=== PATIENT | female | born 1950 | race Caucasian/White ===

== ENCOUNTER 2017-05-19 11:20 | Observation (INO) ==
--- NOTE | 2017-05-19 11:40 | Emergency Department Note ---
Disposition Clinical Impression: Hx of aortic valve replacement, Hx of CABG Chest pain Qualifiers: Chest pain type: unspecified Qualified Code(s): R07.9 - Chest pain, unspecified Disposition: Admitted As Inpatient Condition: Fair Referrals: Rossy Adams CNP [Primary Care Provider] - Forms: ED Satisfaction Letter Time of Disposition: 12:27 Chest Pain HPI - General Chief Complaint: ED Chest Pain Stated Complaint: chest burning Time Seen by Provider: 05/19/17 11:20 Source: patient Limitations: no limitations Vital Signs Reviewed: No Nursing Notes Reviewed: Yes - History of Present Illness HPI Narrative: 66-year-old female with history of aortic valve replacement, CABG 2, pacemaker , presents with intermittent chest burning 4 out of 10, radiating to her neck the last 2 days this has been getting progressively worst she called Dr. Ramirez, and she recommended she co The patient states that she is typically admitted to [facility] for previous workup. The patient denies fever chills, shortness of breath, abdominal pain, dysuria, hematuria. Pt complaint: chest pain, other ("Chest Burning") Onset (ago): day(s) Duration: intermittent Severity scale (1-10): 0 Pain Radiation: neck Improves with: nothing Worsens with: nothing Associated symptoms: Reports: nausea Treatments prior to arrival chest pain: none - Related Data Home Medications Medication Instructions Recorded Confirmed Coumadin 01/24/16 Allergies Allergy/AdvReac Type Severity Reaction Status Date / Time codeine Allergy Anaphylaxis Verified 01/24/16 16:58 propoxyphene [From Darvon] Allergy Anaphylaxis Verified 01/24/16 16:58 Review of Systems: 10 Point ROS was performed and negative except as per below or as documented in HPI. Constitutional: Denies: fever Eyes: Denies: eye pain ENT: Denies: nasal congestion CV:Reports chest pain. Resp: Denies: cough, hemoptysis GI: Denies: abdominal pain, hematochezia Denies: dysuria, hematuria MSK: Denies: back pain, neck pain, extremity pain Skin: Denies: new rashes Neuro: Denies: sensory or motor changes All systems ED: reviewed and negative except as stated. Review of Systems: As Per HPI Chest Pain PMH - Past Medical History Medical history: Reports: CVA Psychiatric history: Reports: no psych history - Social History Smoking Status: Never smoker Alcohol use: Reports: none Drug use: Reports: none Physical Exam Constitutional: NAD, vital signs mild tachycardic comfortable Eyes: PERRLA, sclera anicteric ENT & Mouth: NCAT, normal external ears bilaterally, MMM Neck: normal inspection, neck is supple Resp: CTA bilaterally, no resp distress CV: tachycardic, +2 systolic murmur Surgical incision consistent with CABG, left pacemaker GI: normal inspection, soft, no guarding or rigidity Back: normal inspection, no tenderness to palpation Neuro: A&O3, CNII-XII grossly intact, WYNNE MSK: no gross deformities, normal ROM UE and LE Skin: on limited exam, skin intact with no rashes or lesions - General Limitations: no limitations General appearance: in no apparent distress Course Course Narrative: 66-year-old femalepresents with chest pain at rest, HEART SCORE of 6 risk factors, age,moderately suspicious story, will get ischemic workup ekg no changes, LBBB with paced rhthym - Reevaluation(s) Reevaluation #1: Trop negative EKG no changes Reevaluation #2: Trop negative admitted to Dr Land for wkrup Heart score 6 patient stable and chest pain free. ASA given Time: 12:26 Vital Signs Temperature 98 F 05/19/17 11:22 Pulse Rate 98 05/19/17 11:22 Respiratory Rate 20 05/19/17 11:22 Blood Pressure 152/92 05/19/17 11:22 O2 Sat by Pulse Oximetry 96 05/19/17 11:22 Temperature 98 F 05/19/17 11:22 Pulse Rate 92 05/19/17 11:41 Respiratory Rate 18 05/19/17 11:41 Blood Pressure 152/106 05/19/17 11:41 O2 Sat by Pulse Oximetry 95 05/19/17 11:41 Oxygen Delivery Oxygen Delivery Room Air Chest Pain - Lab Data Result diagrams: 05/19/17 11:35 Lab Results 05/19/17 05/19/17 05/19/17 Range/Units 11:35 11:35 11:35 WBC 6.2 (4.3-11.1) K/mcL RBC 3.68 L (3.82-4.97) M/mcL Hgb 11.9 (11.5-15.4) g/dL Hct 36.4 (35.3-44.9) % MCV 98.9 (83.0-100.0) fL MCH 32.3 (28.0-33.3) pg MCHC 32.7 (31.6-35.5) g/dL RDW 13.1 (11.5-14.5) % Plt Count 185 (140-400) K/mcL MPV 12.5 H (9.4-12.4) fL Immature Gran % 0.5 (0-4) % Seg Neutrophils % 69.5 % Lymphocytes % 18.8 % Monocytes % 8.6 % Eosinophils % 1.8 % Basophils % 0.8 % Neutrophils # 4.3 (1.6-8.9) K/mcL Lymphocytes # 1.2 (0.6-4.6) K/mcL Monocytes # 0.5 (0.0-1.3) K/mcL Eosinophils # 0.1 (0.0-0.6) K/mcL Basophils # 0.1 (0.0-0.2) K/mcL PT 28.6 H (9.4-12.1) Seconds INR 2.6 Troponin I 0.00 (0-0.03) ng/mL - EKG Data EKG attestation: Yes I reviewed and interpreted this EKG. EKG shows normal: sinus rhythm Rate: tachycardia Emerson/QRS: LBBB (Pacmaker) Interpretation: nonspecific ST-T wave changes - Core Measures AMI Core Measures Followed: Yes Heart Score - Score History: Moderately Suspicious EKG: Non Specific repolarisation Disturbance Age: Greater than 65 Risk Factors: Equal/Greater than 3 risk factor or history of atherosclerotic disease Troponin: Less than normal limit HEART Score Total: 6
[2017-05-19] MEDS ORDERED: Aspirin 81 MG TAB.CHEW PO ONE (11:41)
--- NOTE | 2017-05-19 11:41 | Emergency Department Note ---
START Narrative - START START: I examined this patient and my medical decision-making was reviewed with the MANUFACTURING PLANT TECHNICIAN/PA/Advanced Practice Nurse/Resident Physician. I agree with the documented findings, disposition and treatment plan as described except to the extent set forth below. ED attending note: Patient seen with emergency medicine resident Dr. Clifton. Please see a copy of his note for details of the H&P, evaluation, management and disposition of this patient. We independently had [id number] contact with the patient Briefly: 66-year-old female history of multiple pacemakers with replacement aortic valve replacement 2. Coronary artery disease. Chest burning with radiation to neck intermittently since yesterday. EKG shows paced rhythm with no acute ischemic changes compared to an old EKG. Heart scored at least 4. Patient will undergo cardiac evaluation and admission for provocative testing. Patient disposition pending
[2017-05-19 11:47] LABS: Basophils # 0.1 K/mcL (0.0-0.2); Basophils % 0.8 %; Eosinophils # 0.1 K/mcL (0.0-0.6); Eosinophils % 1.8 %; Hematocrit 36.4 % (35.3-44.9); Hemoglobin 11.9 g/dL (11.5-15.4); Immature Granulocytes % 0.5 % (0-4); Lymphocytes # 1.2 K/mcL (0.6-4.6); Lymphocytes % 18.8 %; Mean Corpuscular HGB Conc 32.7 g/dL (31.6-35.5); Mean Corpuscular Hemoglobin 32.3 pg (28.0-33.3); Mean Corpuscular Volume 98.9 fL (83.0-100.0); Mean Platelet Volume 12.5 fL (9.4-12.4); Monocytes # 0.5 K/mcL (0.0-1.3); Monocytes % 8.6 %; Neutrophils # 4.3 K/mcL (1.6-8.9); Platelet Count 185 K/mcL (140-400); Red Blood Count 3.68 M/mcL (3.82-4.97); Red Cell Distribution Width 13.1 % (11.5-14.5); Segmented Neutrophils % 69.5 %
[2017-05-19 12:06] LABS: INR 2.6; Prothrombin Time 28.6 Seconds (9.4-12.1)
[2017-05-19 12:56] LABS: BUN/Creatinine Ratio 17 (6-26); Blood Urea Nitrogen 18 mg/dL (7-20); Calcium 9.7 mg/dL (8.6-10.8); Carbon Dioxide 27 mEq/L (19-29); Chloride 104 mEq/L (98-109); Glucose 84 mg/dL (70-99); Osmolality,Calculated 287 (280-300); Potassium 3.8 mEq/L (3.5-4.5); Sodium 138 mEq/L (136-145); eGFR For African Americans > 60 (> 60); eGFR For Non-African Americans 50 (> 60)
[2017-05-19] MEDS ORDERED: Naloxone 0.4 MG/ML INJ IVP PRN (12:58)
[2017-05-19] MEDS ORDERED: Acetaminophen 325 MG TABLET PO PRN (12:58)
--- NOTE | 2017-05-19 13:25 | Internal Med History&Physical ---
Date of Encounter: 05/19/17 Time of Encounter: 12:30 Assessment and Plan (1) Chest discomfort Current visit: Yes Status: Acute Etiology undetermined. Pt has Hx of CABG, need to r/o ACS. Also possible arrhythmia or valve problem. - We will place patient on continuous cardiac monitoring. - We will check 3 sets of troponin. - Echocardiogram ordered. - Nuclear stress test in a.m. (2) DVT prophylaxis Current visit: Yes Status: Acute Patient is on Coumadin (3) History of CVA (cerebrovascular accident) Current visit: Yes Status: Acute Patient has history of a CVA, on antiplatelet and statin treatment (4) Status post placement of cardiac pacemaker Current visit: Yes Status: Acute (5) Hx of aortic valve replacement Current visit: Yes Status: Acute On Coumadin. INR target 2.5-3.5 (6) Hx of CABG Current visit: Yes Status: Acute Continue aspirin, beta mert, and statin. Internal Medicine - H&P: HPI Chief complaint: Chest discomfort Admitted From: Home Plans for Post Hospital Care: Home History of present illness: Ms. Clark is a 66 year old female present to ER for chest discomfort for 2 days. Patient has history of aortic valve replacement on Coumadin, history of CABG, s/p PPM, hx of CVA with left side residual paralysis present to ER and complaining of chest discomfort, feels like burning, radiated to left neck, last about 5 second, having 3 times yesterday. At the beginning, patient thought it is due to her pacemaker, which she just get replaced on Mar 15 2017 by [employer]. Patient contacted [facility] and had her PPM checked remotely and was told pacemaker works well. Since symptoms persist, patient came to ER for further treatment. Patient denies shortness of breath, nausea, diaphoresis. She complains of blurred vision when the chest discomfort happens. I discussed the CODE STATUS with patient. She said she does not want resuscitation, DNR CCA has been placed. Past Med Surg Social Fam HX - Past Medical History Medical history: CVA Psychiatric history: no psych history - Social History Smoking Status: Never smoker Smokeless Tobacco Status: No Alcohol use: none Drug use: none Internal Medicine - H&P: Meds Alendronate Sodium [Fosamax] 70 mg PO SA 05/19/17 [History] Aspirin [Ecotrin] 325 mg PO DAILY 05/19/17 [History] Atorvastatin Calcium 80 mg PO DAILY 05/19/17 [History] Calcium Carbonate/Vitamin D3 [Calcium 600 + Vit D Tablet] 1 each PO DAILY [History] CarBAMazepine [Carbamazepine ER] 200 mg PO DAILY 05/19/17 [History] Cholecalciferol (D-3) [Vitamin D] 2,000 unit PO DAILY 05/19/17 [History] Enoxaparin [Lovenox] 60 mg SQ DAILY 05/19/17 [History] Ferrous Sulfate [Iron] 325 mg PO DAILY 05/19/17 [History] Metoprolol [Lopressor] 50 mg PO BID 05/19/17 [History] Mv-Mn/FA/Vit K/Lycop/Lut/Coq10 [Daily Multivitamin Capsule] 1 each PO DAILY [History] Warfarin [Coumadin] 5 mg PO SUTUWETHSA 05/19/17 [History] Warfarin [Coumadin] 7.5 mg PO MOFR 05/19/17 [History] Allergies codeine Allergy (Verified 05/19/17 12:33) Anaphylaxis propoxyphene [From Darvon] Allergy (Verified 05/19/17 12:33) Anaphylaxis All Systems PM: A 10-system review of systems was performed and is negative for pertinent findings except as documented above in the HPI. - Constitutional Vitals: Temp Pulse Resp BP Pulse Ox 98 F 80 18 150/82 95 05/19/17 11:22 05/19/17 12:36 05/19/17 12:41 05/19/17 12:41 05/19/17 12:36 General appearance: Present: A&O X 3, no acute distress, answers questions appropriately - Head Head exam: Present: atraumatic, normocephalic - Eye Eye exam: Present: PERRL, conjuntiva pink, sclera anicteric Pupils: Present: PERRL - Neck Neck exam general surgery: Present: supple, trachea midline. Absent: lymphadenopathy - Respiratory Respiratory exam: Present: CTAB. Absent: accessory muscle use, rales, rhonchi, wheezes - Cardiovascular Cardiovascular exam: Present: RRR, +S1, +S2. Absent: diastolic murmur, gallop, rubs, systolic murmur - GI/Abdominal GI/Abdominal exam: Present: normal bowel sounds, soft, no peritoneal signs. Absent: distended, tenderness - Extremities Exam Extremities exam: Present: warm, radial pulses palpable and symetrical. Absent : calf tenderness, cyanotic, pedal edema - Neurological Exam Neurological exam: Present: CN II-XII intact, motor sensory deficit (Left side) , oriented X3, no focal deficits, facial droop (Left side). Absent: pronater drift, speech deficit - Skin Skin exam: Present: dry, intact Internal Med - H&P Results - Labs CBC & Chem 7: 05/19/17 11:35 05/19/17 11:35 - EKG Data -: EKG Interpreted by Myself (RBBB) EKG shows normal: sinus rhythm
--- NOTE | 2017-05-19 16:01 | Electrocardiograph Report ---
[address] [place], [place] [address] Test Date: 2017-05-19 Pat Name: Marysol Clark Department: 103 Room: 3B13 Gender: F Office Support Assistant: : 1950 Requested By: Karlos Clifton Order Number: [id number] Reading MD: Adalgisa Murphy Measurements Intervals [place] Rate: 103 P: 1 WV: 148 QRS: -10 QRSD: 128 T: -10 QT: 336 QTc: 396 Interpretive Statements SINUS TACHYCARDIA RIGHT BUNDLE BRANCH BLOCK VOLTAGE CRITERIA FOR LVH INFERIOR MYOCARDIAL INFARCTION, OF INDETERMINATE AGE NONSPECIFIC ST ABNORMALITIES Electronically Signed On 05-19-2017 15:59:25 EDT by Adalgisa Murphy
[2017-05-19] MEDS ORDERED: *HR* Warfarin 7.5 MG TABLET PO SCH (18:00)
[2017-05-19] MEDS ORDERED: Warfarin perPT PO PRN (18:00)
[2017-05-20 05:38] LABS: Basophils % 0.6 %; Eosinophils # 0.2 K/mcL (0.0-0.6); Eosinophils % 2.4 %; Hematocrit 35.1 % (35.3-44.9); Hemoglobin 11.3 g/dL (11.5-15.4); Immature Granulocytes % 0.3 % (0-4); Lymphocytes # 1.1 K/mcL (0.6-4.6); Lymphocytes % 15.8 %; Mean Corpuscular HGB Conc 32.2 g/dL (31.6-35.5); Mean Corpuscular Hemoglobin 31.7 pg (28.0-33.3); Mean Corpuscular Volume 98.6 fL (83.0-100.0); Mean Platelet Volume 13.3 fL (9.4-12.4); Monocytes # 0.7 K/mcL (0.0-1.3); Monocytes % 10.7 %; Neutrophils # 4.7 K/mcL (1.6-8.9); Platelet Count 158 K/mcL (140-400); Red Blood Count 3.56 M/mcL (3.82-4.97); Segmented Neutrophils % 70.2 %
[2017-05-20 06:01] LABS: Calcium 9.3 mg/dL (8.6-10.8); Magnesium 1.7 mg/dL (1.6-2.6); Potassium 3.8 mEq/L (3.5-4.5)
[2017-05-20] MEDS: Aspirin Enteric Coated 325 MG Tablet PO SCH (07:59)
[2017-05-20] MEDS: Cholecalciferol (D-3) 1,000 UNIT TABLET PO SCH (07:59)
[2017-05-20] MEDS: Multivit/Ca/Min/Fe/FA 1 TAB TABLET PO SCH (07:59)
[2017-05-20] MEDS: (Calcium Carbonate/Vitamin D3 [Calcium 600 + Vit D Tab]) PO SCH (08:00)
--- NOTE | 2017-05-20 08:51 | Internal Med Progress Note ---
Date of Encounter: 05/20/17 Time of Encounter: 08:15 - Assessment and plan (1) Chest pain Current Visit: Yes Status: Acute Assessment and plan: Pt repors 2-3 day history of burnging in chest at rest or with exertion. She denies sob, n/v, or diaphoresis. No radiation. She denies fever, or sick contacts. She is pain free now. Echo and stress results pending. EKG ST with RBBB. Rate 103, LA interval 148, QRS 128, Qtc 396. Chest xray negative for cardiopulmonary disease. Troponins are negative. Continue telemetry Stress and echo pending Continue ASA, Lipitor, Lopressor, and Coumadin. Qualifiers: Chest pain type: unspecified Qualified Code(s): R07.9 - Chest pain, unspecified (2) Hx of aortic valve replacement Current Visit: Yes Status: Acute Assessment and plan: Pt is on Coumadin. Pharmacy is dosing. Therapeutic at 2.6. Continue to monitor labs. (3) Hx of CABG Current Visit: Yes Status: Chronic Assessment and plan: Continue ASA. Plavix, BB and statin. (4) Physical deconditioning Current Visit: Yes Status: Acute Assessment and plan: Pt states that she has become increasingly weak over the last few months. She lives at home with her , who is chronically ill and also debilitated. She states, "We take care of each other." She requires assistance to and from the [facility] by primary RN and appears to be weak. Chronic L side deficit from CVA. Pt appears unkempt and states that she requires assistance with bathing and meal preparation. She states that neither she, nor her are physically able to cook meals and primarily eat sandwiches and pre-packaged foods. PT/OT/SS consults Assess for home health needs and eligibility. (5) Chest discomfort Current Visit: Yes Status: Resolved (6) History of CVA (cerebrovascular accident) Current Visit: Yes Status: Acute Assessment and plan: Prior history of CVA with L sided deficits. Continue Plavix and statin. (7) Status post placement of cardiac pacemaker Current Visit: Yes Status: Acute Assessment and plan: Placed in February 2017. (8) DVT prophylaxis Current Visit: Yes Status: Acute Assessment and plan: Pt is on Coumadin. Pharmacy dosing. She is up to [facility] with assistance. - Time Spent With Patient less than 15 minutes - Subjective Interval history: Patient was seen and assessed at 8:15 AM. She was being assisted from bed to commode by primary nurse. Patient states that she lives alone at home with her who is also rather debilitated. Patient has left-sided deficits from prior CVA. She appears unkempt. She has a hematoma beneath right eye and states she is unsure how it happened. She states that her is end-stage renal disease with dialysis and states that he sleeps most of the day. She says that it is they are both unable to cook meals and states that the primarily eat cold food and prepackaged food. We put a social service consult, as well as PT and OT. Patient states that she would like to have home health. - Constitutional Vitals: Temp Pulse Resp BP Pulse Ox 98.5 F 81 17 127/73 98 05/20/17 06:50 05/20/17 06:50 05/20/17 06:50 05/20/17 06:50 05/20/17 06:50 General appearance: Present: A&O X 3, pleasant, no acute distress, answers questions appropriately - Head Head exam: Present: normal inspection - Eye Eye exam: Present: normal appearance, periorbital swelling - ENT ENT exam: Present: mucous membranes moist, normal external ear exam - Neck Neck exam general surgery: Present: normal inspection. Absent: lymphadenopathy , tenderness - Respiratory Respiratory exam: Present: CTAB. Absent: rales, respiratory distress, rhonchi, stridor, wheezes - Cardiovascular Cardiovascular exam: Present: RRR, +S1, +S2. Absent: clicks, gallop, systolic murmur - GI/Abdominal GI/Abdominal exam: Present: normal bowel sounds, soft. Absent: hepatomegaly, tenderness - Extremities Exam Extremities exam: Present: normal capillary refill, pedal edema, warm. Absent: tenderness - Neurological Exam Neurological exam: Present: alert, oriented X3, no focal deficits, pronater drift, facial droop. Absent: strengths equal and symetr throughout, speech deficit - Skin Skin exam: Present: dry, intact, warm Internal Medicine: Result - Labs CBC & Chem 7: 05/20/17 04:01 05/20/17 04:01 Labs: Short CBC 05/20/17 Range/Units 04:01 WBC 6.7 (4.3-11.1) K/mcL Hgb 11.3 L (11.5-15.4) g/dL Hct 35.1 L (35.3-44.9) % Plt Count 158 (140-400) K/mcL Neutrophils # 4.7 (1.6-8.9) K/mcL BMP 05/20/17 04:01 Sodium 139 Potassium 3.8 Chloride 106 Carbon Dioxide 24 BUN 18 Creatinine 1.13 H Glucose 89 Calcium 9.3 Cardiac Enzymes 05/19/17 05/19/17 Range/Units 17:39 22:09 Troponin I 0.00 0.00 (0-0.03) ng/mL - ABG Interpretation ABG results: PT/INR, D-dimer PT 28.6 Seconds (9.4-12.1) H 05/19/17 11:35 Consult Discharge Plan - Plan Referrals: Rossy Adams, PIPE STRIPPER [Primary Care Provider] -
[2017-05-20] MEDS ORDERED: Regadenoson 0.4 MG/5 ML SYRINGE IVP ONE (11:40)
[2017-05-20] MEDS ORDERED: (Alendronate Sodium [Fosamax] 70 MG) PO SCH (13:02)
--- NOTE | 2017-05-20 15:46 | Nuclear Medicine Stress Report ---
Regadenoson Nuclear Stress Name: Marysol Clark Date of Study: 05/20/2017 Date: 1950 Ht: 64.0 in Medical Record#: [id number] Age: 66 Wt: 152.0 lb Gender: Female Order #: [id number] Location: [facility] Room: [facility] Supervising Provider: Kristal Aparicio CNP Reading Physician: Duke Huerta MD, [facility] Ordering Physician: Kate Rios CNP Primary Care Physician: Rossy Adams CNP Stress Technologist: Yany Ferguson, CAMP DISHWASHER, CCT, CPFT Damage Assessor: Shalom Ramirez Indications: Chest Pain Impression: The patient demonstrated a hypotensive blood pressure response to regadenoson. Initial BP 112/72. BP decreased to 72/40 after regadenoson. BP improved to 92/52 in recovery after IV fluids. Gated LVEF = 57%. Medium sized, moderate-severe intensity, fixed perfusion defect involving the basal-mid inferior wall and basal inferoseptum. Findings are consistent with myocardial infarction. There is no evidence of reversible myocardial ischemia. History: Hypercholesteremia History of Coronary Artery Bypass Surgery Stress Test Summary: Stress Test Type: Pharmacologic Regadenoson 0.4mg/5ml given IV Baseline Information: Initial Heart Rate: 96 Blood Pressure: 112/72 Stress Information: Test Terminated Due to (primary): As per protocol Maximum Blood Pressure: 72/40 Maximum Heart Rate: 102 Percent Maximum Heart Rate Achieved: 67 Double Product: 7344 Symptoms: Shortness of breath Nuclear Summary: SPECT myocardial perfusion imaging using Tc99m Sestamibi given intravenously was performed at rest and following cardiac stress testing. The resting images were obtained following initial dose of 10.0 mCi. Following stress an additional dose of 28.0 mCi was given at peak exercise or 30 seconds post regadenoson infusion. Findings: Stress Note * Resting ECG demonstrated sinus rhythm with RBBB, probable old inferolateral KS. * No baseline arrhythmias were noted. * Patient had no chest pain during stress. * Occasional PACs noted during stress and recovery. * No significant ECG changes with regadenoson. Hemodynamic responses * The patient demonstrated a hypotensive blood pressure response to regadenoson. Initial BP 112/72. BP decreased to 72/40 after regadenoson. BP improved to 92/52 in recovery after IV fluids. Study Quality * Study quality is average. Gated EF % * Gated LVEF = 57%. Left Ventricle * The left ventricle is not dilated. * Medium sized, moderate-severe intensity, fixed perfusion defect involving the basal-mid inferior wall and basal inferoseptum. Findings are consistent with myocardial infarction. * All other segmental perfusion normal in rest and stress. * There is no evidence of reversible myocardial ischemia. TID * No evidence of transient ischemic dilatation. Updated by Duke Huerta MD, FACC on 05/20/2017 3:40:36 PM electronically signed on 05/20/2017 3:41:30 PM with status of Final
[2017-05-20] MEDS: *HR* Warfarin 5 MG TABLET PO SCH (17:33)
[2017-05-21 05:18] LABS: INR 2.9; Prothrombin Time 32.5 Seconds (9.4-12.1)
[2017-05-21 08:43] LABS: Basophils % 0.3 %; Eosinophils # 0.2 K/mcL (0.0-0.6); Eosinophils % 2.7 %; Hematocrit 36.8 % (35.3-44.9); Hemoglobin 11.9 g/dL (11.5-15.4); Immature Granulocytes % 0.1 % (0-4); Lymphocytes # 1.2 K/mcL (0.6-4.6); Lymphocytes % 17.2 %; Mean Corpuscular HGB Conc 32.3 g/dL (31.6-35.5); Mean Corpuscular Hemoglobin 32.2 pg (28.0-33.3); Mean Corpuscular Volume 99.5 fL (83.0-100.0); Mean Platelet Volume 12.7 fL (9.4-12.4); Monocytes # 0.6 K/mcL (0.0-1.3); Monocytes % 8.7 %; Neutrophils # 5.1 K/mcL (1.6-8.9); Platelet Count 169 K/mcL (140-400); Red Cell Distribution Width 13.2 % (11.5-14.5)
[2017-05-21 08:54] LABS: BUN/Creatinine Ratio 18 (6-26); Blood Urea Nitrogen 17 mg/dL (7-20); Calcium 9.3 mg/dL (8.6-10.8); Carbon Dioxide 27 mEq/L (19-29); Chloride 105 mEq/L (98-109); Glucose 110 mg/dL (70-99); Osmolality,Calculated 288 (280-300); Potassium 3.9 mEq/L (3.5-4.5); Sodium 138 mEq/L (136-145); eGFR For African Americans > 60 (> 60); eGFR For Non-African Americans 59 (> 60)
--- NOTE | 2017-05-21 09:06 | Internal Med Progress Note ---
Date of Encounter: 05/21/17 Time of Encounter: 08:00 - Assessment and plan (1) Chest pain Current Visit: Yes Status: Acute Assessment and plan: Pt repors 2-3 day history of burnging in chest at rest or with exertion. She denies sob, n/v, or diaphoresis. No radiation. She denies fever, or sick contacts. She remains pain free since Monday. EKG ST with RBBB. Rate 103, WY interval 148, QRS 128, Qtc 396. Chest xray negative for cardiopulmonary disease. Troponins are negative. Stress test results: The patient demonstrated a hypotensive blood pressure response to regadenoson. Initial BP 112/72. BP decreased to 72/40 after regadenoson. BP improved to 92/52 in recovery after IV fluids. Gated LVEF = 57%. Medium sized , moderate-severe intensity, fixed perfusion defect involving the basal-mid inferior wall and basal inferoseptum. Findings are consistent with myocardial infarction.There is no evidence of reversible myocardial ischemia. Echo results: Mild LV systolic dysfunction, LVEF 45-50%. There is hypokinesis of the inferior wall. There is atypical septal motion consistent with prior cardiac surgery.Normal right ventricular size and function. A device lead was visualized in the right atrium and right ventricle. Mildly dilated right atrium.Mechanical aortic valve was not well visualized. It appears to be functioning normally. No evidence of significant stenosis or regurgitation. Mild mitral regurgitation. Mild-moderate tricuspid regurgitation. Mild pulmonary hypertension. Estimated RVSP = 38 mmHg. Continue telemetry Continue ASA, Lipitor, Lopressor, and Coumadin. Qualifiers: Chest pain type: unspecified Qualified Code(s): R07.9 - Chest pain, unspecified (2) Hx of aortic valve replacement Current Visit: Yes Status: Acute Assessment and plan: Pt is on Coumadin. Pharmacy is dosing. Therapeutic at 2.9. Continue to monitor labs. (3) Hx of CABG Current Visit: Yes Status: Chronic Assessment and plan: Continue ASA. Plavix, BB and statin. Continue telemetry (4) Physical deconditioning Current Visit: Yes Status: Acute Assessment and plan: Chronic L side deficit from CVA. Pt had PT in February after her pacer was place. Pt appears unkempt and states that she requires assistance with bathing and meal preparation. She states that neither she, nor her are physically able to cook meals and primarily eat sandwiches and pre-packaged foods. she states that she has a family member who drops by to check on the daily, however , is not available at all times of the day to assist them with bathing, meals, ambulation, etc. Pt states that she has someone come in to help them clean every 2 weeks. PT/OT/SS consults Assess for home health needs and eligibility. (5) Chest discomfort Current Visit: Yes Status: Resolved Assessment and plan: Denies any chest pain or burning since Monday. (6) History of CVA (cerebrovascular accident) Current Visit: Yes Status: Acute Assessment and plan: Prior history of CVA with L sided deficits. Continue Plavix and statin. PT/OT pending (7) Status post placement of cardiac pacemaker Current Visit: Yes Status: Acute Assessment and plan: Placed in February 2017. (8) DVT prophylaxis Current Visit: Yes Status: Acute Assessment and plan: Pt is on Coumadin. Pharmacy dosing. She is up to BS with assistance. - Time Spent With Patient less than 15 minutes - Subjective Interval history: Pt was seen and assessed at 0800. She is alert and awake, however, does not remember speaking to me yesterday about wanting home health. Pt and I had a long discussion about her instability when walking and both she and her being unable to clean or prepare meals. She states that she has a family member who checks on them daily, but is not always available to help at all times of the day. She has a hematoma under her left eye and has no recollection of how it got there or what happened. She denies fall or known injury. She states that she had PT after her pacer insertion in February. She remains chest pain free. We discussed her cath results and continued medical management. Pt is to have 2 teeth extracted on Monday and her multifold operator from [place] has prescribed antibiotics to take prior to procedure. She states that she needs to start it on Monday and that it has been called in to [facility] pharmacy. - Constitutional Vitals: Temp Pulse Resp BP Pulse Ox 97.6 F 82 14 129/73 98 05/21/17 07:15 05/21/17 07:15 05/21/17 07:15 05/21/17 07:15 05/21/17 07:15 General appearance: Present: A&O X 3, pleasant, no acute distress, answers questions appropriately - Head Head exam: Present: normal inspection - Eye Eye exam: Present: normal appearance, conjuntiva pink - ENT ENT exam: Present: mucous membranes moist, normal exam, normal external ear exam - Neck Neck exam general surgery: Present: normal inspection. Absent: lymphadenopathy , tenderness - Respiratory Respiratory exam: Present: CTAB. Absent: chest wall tenderness, decreased breath sounds, rales, respiratory distress, rhonchi, stridor, wheezes - Cardiovascular Cardiovascular exam: Present: RRR, +S1, +S2. Absent: diastolic murmur, systolic murmur - GI/Abdominal GI/Abdominal exam: Present: distended, normal bowel sounds, soft. Absent: hepatomegaly, tenderness - Extremities Exam Extremities exam: Present: pedal edema, warm, radial pulses palpable and symetrical. Absent: normal inspection, tenderness Additional comments: Pt has +1-2 non-pitting edema to BLE, states is normal for her. L greater than R , normal since CVA. - Neurological Exam Neurological exam: Present: alert, oriented X3. Absent: strengths equal and symetr throughout, speech deficit - Skin Skin exam: Present: dry, intact, warm Internal Medicine: Result - Labs CBC & Chem 7: 05/21/17 08:36 05/21/17 08:36 Labs: Short CBC 05/21/17 Range/Units 08:36 WBC 7.2 (4.3-11.1) K/mcL Hgb 11.9 (11.5-15.4) g/dL Hct 36.8 (35.3-44.9) % Plt Count 169 (140-400) K/mcL Neutrophils # 5.1 (1.6-8.9) K/mcL BMP 05/21/17 08:36 Sodium 138 Potassium 3.9 Chloride 105 Carbon Dioxide 27 BUN 17 Creatinine 0.95 Glucose 110 H Calcium 9.3 - ABG Interpretation ABG results: PT/INR, D-dimer PT 32.5 Seconds (9.4-12.1) H 05/21/17 04:19 Consult Discharge Plan - Plan Referrals: Rossy Adams, BOBBIN TRUCKER [Primary Care Provider] -
[2017-05-21] MEDS: (Calcium Carbonate/Vitamin D3 [Calcium 600 + Vit D Tab]) PO SCH (09:35)
[2017-05-21] MEDS: Multivit/Ca/Min/Fe/FA 1 TAB TABLET PO SCH (09:35)
[2017-05-21] MEDS: Cholecalciferol (D-3) 1,000 UNIT TABLET PO SCH (09:35)
[2017-05-21] MEDS: Aspirin Enteric Coated 325 MG Tablet PO SCH (09:35)
[2017-05-21] MEDS: *HR* Warfarin 5 MG TABLET PO SCH (18:13)
[2017-05-22 05:01] LABS: Basophils % 0.5 %; Eosinophils # 0.3 K/mcL (0.0-0.6); Eosinophils % 3.4 %; Hematocrit 34.2 % (35.3-44.9); Hemoglobin 11.4 g/dL (11.5-15.4); Immature Granulocytes % 0.1 % (0-4); Immature Platelets 11.6 % (1.1-6.1); Lymphocytes # 1.4 K/mcL (0.6-4.6); Lymphocytes % 19.5 %; Mean Corpuscular HGB Conc 33.3 g/dL (31.6-35.5); Mean Corpuscular Volume 99.1 fL (83.0-100.0); Mean Platelet Volume 13.2 fL (9.4-12.4); Monocytes # 0.8 K/mcL (0.0-1.3); Monocytes % 10.8 %; Neutrophils # 4.9 K/mcL (1.6-8.9); Platelet Count 150 K/mcL (140-400); Red Blood Count 3.45 M/mcL (3.82-4.97); Red Cell Distribution Width 13.3 % (11.5-14.5); Segmented Neutrophils % 65.7 %
[2017-05-22 05:09] LABS: INR 3.1; Prothrombin Time 34.4 Seconds (9.4-12.1)
[2017-05-22 05:13] LABS: BUN/Creatinine Ratio 22 (6-26); Blood Urea Nitrogen 20 mg/dL (7-20); Calcium 9.5 mg/dL (8.6-10.8); Carbon Dioxide 22 mEq/L (19-29); Chloride 108 mEq/L (98-109); Glucose 89 mg/dL (70-99); Osmolality,Calculated 290 (280-300); Potassium 3.9 mEq/L (3.5-4.5); Sodium 139 mEq/L (136-145); eGFR For African Americans > 60 (> 60); eGFR For Non-African Americans > 60 (> 60)
[2017-05-22] MEDS: Aspirin Enteric Coated 325 MG Tablet PO SCH (07:53)
[2017-05-22] MEDS: (Calcium Carbonate/Vitamin D3 [Calcium 600 + Vit D Tab]) PO SCH (07:53)
[2017-05-22] MEDS: Multivit/Ca/Min/Fe/FA 1 TAB TABLET PO SCH (07:53)
[2017-05-22] MEDS: Cholecalciferol (D-3) 1,000 UNIT TABLET PO SCH (07:53)
[2017-05-22 11:51] VITALS: BP 155/82
--- NOTE | 2017-05-22 13:41 | Discharge Summary ---
Date of Encounter: 05/22/17 Time of Encounter: 08:45 - Discharge Diagnosis (1) Chest pain Priority: Primary Status: Acute Comments: She denies chest pain today. Echo and stress were negative. EKG without signs of ST elevation. Chest x-ray was negative. Troponins were negative. Qualifiers: Chest pain type: unspecified Qualified Code(s): R07.9 - Chest pain, unspecified (2) Hx of aortic valve replacement Priority: Secondary Status: Acute Comments: Continue anticoagulation with Coumadin. (3) Hx of CABG Priority: Secondary Status: Chronic Comments: Continue aspirin, statin,, Lopressor, Coumadin. She denies chest pain. She follows with cardiology at [place]. (4) Physical deconditioning Priority: Secondary Status: Chronic Comments: Patient was evaluated by physical therapy. She will be going home with a [facility] home health for therapy and nursing services. (5) History of CVA (cerebrovascular accident) Priority: Secondary Status: Chronic Comments: History of CVA with left-sided deficits. Patient will be going home with home health or [place]. Continue aspirin and statin. (6) Status post placement of cardiac pacemaker Priority: Secondary Status: Chronic Comments: Second pacemaker replaced in December,. (7) DVT prophylaxis Priority: Secondary Status: Acute Comments: Patient on Coumadin. - Discharge Medications Prescriptions: RX: Ferrous Sulfate [Iron] 325 mg PO DAILY #60 Home Medications: RX: Alendronate Sodium [Fosamax] 70 mg PO SA 05/19/17 [History] RX: Aspirin [Ecotrin] 325 mg PO DAILY 05/19/17 [History] RX: Atorvastatin Calcium 80 mg PO DAILY 05/19/17 [History] RX: Calcium Carbonate/Vitamin D3 [Calcium 600 + Vit D Tablet] 1 each PO DAILY [History] RX: CarBAMazepine [Carbamazepine ER] 200 mg PO DAILY 05/19/17 [History] RX: Cholecalciferol (D-3) [Vitamin D] 2,000 unit PO DAILY 05/19/17 [History] RX: Enoxaparin [Lovenox] 60 mg SQ DAILY 05/19/17 [History] RX: Metoprolol [Lopressor] 50 mg PO BID 05/19/17 [History] RX: Mv-Mn/FA/Vit K/Lycop/Lut/Coq10 [Daily Multivitamin Capsule] 1 each PO DAILY 05/19/17 [History] RX: Warfarin [Coumadin] 5 mg PO SUTUWETHSA 05/19/17 [History] RX: Warfarin [Coumadin] 7.5 mg PO MOFR 05/19/17 [History] RX: Ferrous Sulfate [Iron] 325 mg PO DAILY #60 05/22/17 [Rx] Allergies/Adverse Reactions: Allergies codeine Allergy (Verified 05/19/17 12:33) Anaphylaxis propoxyphene [From Darvon] Allergy (Verified 05/19/17 12:33) Anaphylaxis Procedures/tests Complete & Pending: Procedures Performed prior 72 hours Category Date Time Status NM eusebio perf SPECT multi [NM] Routine Exams 05/20/17 07:48 Taken EV echocardiogram Stat Y 05/19/17 13:04 Completed SP pharm nuclear stress Routine Y 05/20/17 07:47 Completed Date of admission: 05/19/17 12:33 Primary care physician: Rossy Adams CNP Consults: 05/19/17 15:10 Consult to Staging Technician [CONS] Routine Reason for SW Consult: discharge planning. possible ECF. 05/20/17 08:51 Consult to Occupational Therapy [CONS] Routine Comment: Evaluate, develop and implement POC Reason for Consult: eval Consult to Physical Therapy [CONS] Routine Comment: Evaluate, develop and implement POC Reason for Consult: evaluation Discharging clinician: Kate Rios Anticipated date of discharge: 05/22/17 - Patient Status Disposition: Home Health Service Condition: Good Functional capacity at discharge: uses cane/walker Overall status at discharge: patient is back to baseline - Discharge Instructions Instructions: Chest Pain (DC) Follow Up With: Rossy Adams CNP [Primary Care Provider] - 05/26/17 4:00 pm Additional Instructions: Follow up with your PCP in the next week to 10 days for a follow up visit. You will be contacted by [facility] Resume your normal home medications. Return to the ER as needed for any other problems or concerns or if your symptoms return or worsen. - Diet and Activity Activity: ambulate only with your walker, resume usual activities as tolerated Diet: advance to your usual diet, low fat, low cholesterol Hospital course: Ms. Clark is a 66 year old female with past medical history of CABG, aortic valve replacement, CVA with left-sided deficit, pacemaker. Patient presented to the emergency department for 2 day history of chest discomfort. Feels a burning, radiated to left neck lasted about 5 seconds, occurring 3 times on the day prior to admission. Patient initially thought the pain was due to her pacemaker which she just had replaced in Feb, 2017. Patient sees cardiology at [place]. She had her pacemaker checked remotely and was told everything was fine. She denied shortness of breath, nausea, diaphoresis. Patient states that she lives at home alone with her . Patient is disheveled, she has difficulty getting up and down from bedside commode and back into bed. She says that her is debilitated, as well. She said that he is end-stage renal disease with dialysis and that he sleeps a lot. She said that they have someone come in every 2 weeks to clean and that she has a family member who comes once a day to check on them. She is very unsteady on her feet and says that she is not able to make food at home because she cannot stand up. She says they normally have sandwiches and prepared foods. I had her stay for evaluation by physical therapy, occupational therapy, and social media director. Physical therapy recommended home health, patient will go home with [facility]. Echocardiogram shows Mild LV systolic dysfunction, LVEF 45-50%. There is hypokinesis of the inferior wall. There is atypical septal motion consistent with prior cardiac surgery. Normal right ventricular size and function. A device lead was visualized in the right atrium and right ventricle. Mildly dilated right atrium. Mechanical aortic valve was not well visualized. It appears to be functioning normally. No evidence of significant stenosis or regurgitation.Mild mitral regurgitation. Mild-moderate tricuspid regurgitation. Mild pulmonary hypertension. Chest x-ray was negative for any acute cardiopulmonary disease. Pollens were negative. Patient denied chest pain entire time she was on the unit. Patient's labs and vital signs have been within normal limits. Patient will follow up with her leave coordinator at [place]. She will restart home health. And she will follow up with primary care. Patient is stable and appropriate for discharge. - Time Spent with Patient Total time spent providing and/or coordinating discharge services: Less than 30 minutes - Constitutional Vitals: Temp Pulse Resp BP Pulse Ox 97.7 F 66 15 155/82 93 05/22/17 11:48 05/22/17 11:48 05/22/17 11:48 05/22/17 11:48 05/22/17 11:48 General appearance: Present: A&O X 3, pleasant, no acute distress, answers questions appropriately - Head Head exam: Present: normal inspection - Eye Eye exam: Present: normal appearance, conjuntiva pink - ENT ENT exam: Present: mucous membranes moist, normal exam, normal external ear exam - Neck Neck exam general surgery: Present: normal inspection. Absent: lymphadenopathy , tenderness - Respiratory Respiratory exam: Present: decreased breath sounds, CTAB. Absent: rales, respiratory distress, rhonchi, wheezes - Cardiovascular Cardiovascular exam: Present: RRR, +S1, +S2. Absent: diastolic murmur, systolic murmur - GI/Abdominal GI/Abdominal exam: Present: hepatomegaly, normal bowel sounds, soft. Absent: tenderness - Extremities Exam Extremities exam: Present: warm, radial pulses palpable and symetrical. Absent : pedal edema, tenderness - Neurological Exam Neurological exam: Present: alert, oriented X3, no focal deficits. Absent: facial droop, speech deficit - Skin Skin exam: Present: dry, intact, normal color, warm. Absent: rash
--- NOTE | 2017-05-22 15:54 | Physician Discharge Referral ---
Home Health/Hosp Referral Info Provider in Charge Post Discharge: PCP - Diagnosis (1) Chest pain Priority: Primary Status: Acute (2) Hx of aortic valve replacement Priority: Secondary Status: Acute (3) Hx of CABG Priority: Secondary Status: Chronic (4) Physical deconditioning Priority: Secondary Status: Chronic (5) History of CVA (cerebrovascular accident) Priority: Secondary Status: Chronic (6) Status post placement of cardiac pacemaker Priority: Secondary Status: Chronic (7) DVT prophylaxis Priority: Secondary Status: Acute - Respiratory Orders Smoking Cessation: Smoking cessation has been advised. For more information, call the [place] Tobacco Quit Line at 4-807-GYUY-NOW. - Diet/Nutrition Diet/Nutrition Orders: Regular - Activity Activity Orders: Up ad catarino - Services Needed Following services are medically necessary services: Nursing, Home Health Aide, Physical Therapy - Transfer Medications Prescriptions: Ferrous Sulfate [Iron] 325 mg PO DAILY #60 Home Medications: Alendronate Sodium [Fosamax] 70 mg PO SA 05/19/17 [History] Aspirin [Ecotrin] 325 mg PO DAILY 05/19/17 [History] Atorvastatin Calcium 80 mg PO DAILY 05/19/17 [History] Calcium Carbonate/Vitamin D3 [Calcium 600 + Vit D Tablet] 1 each PO DAILY [History] CarBAMazepine [Carbamazepine ER] 200 mg PO DAILY 05/19/17 [History] Cholecalciferol (D-3) [Vitamin D] 2,000 unit PO DAILY 05/19/17 [History] Enoxaparin [Lovenox] 60 mg SQ DAILY 05/19/17 [History] Metoprolol [Lopressor] 50 mg PO BID 05/19/17 [History] Mv-Mn/FA/Vit K/Lycop/Lut/Coq10 [Daily Multivitamin Capsule] 1 each PO DAILY [History] Warfarin [Coumadin] 5 mg PO SUTUWETHSA 05/19/17 [History] Warfarin [Coumadin] 7.5 mg PO MOFR 05/19/17 [History] Ferrous Sulfate [Iron] 325 mg PO DAILY #60 05/22/17 [Rx] Allergies/Adverse Reactions: Allergies codeine Allergy (Verified 05/19/17 12:33) Anaphylaxis propoxyphene [From Darvon] Allergy (Verified 05/19/17 12:33) Anaphylaxis Certification: Further, I certify that my clinical findings support that this patient is homebound (i.e. absences from home require considerable and taxing effort and are for medical reasons or [employer] services or infrequently or short duration when for other reasons) because: Homebound Reason: Patient requires assistance of a person or device to safely leave home, Leaving home requires considerable and taxing effort due to condition, Altered mental status requiring supervision when leaving home Attestation: My signature below is to certify that this patient is under my care and that I, or nurse practitioner, or a physician's health care assistant working with me, has a face-to -face encounter with this patient.
== END 2017-05-22 17:10 | disposition home health service (06) ==
LOC: 3BNU 11:20 → EMEROO 11:20 → 3BNU 13:09
PROVIDERS: ADMIT Internal Medicine; ATTEND Registered Nurse

== ENCOUNTER 2022-05-14 08:26 | Inpatient (IN) ==
[2022-05-14 09:09] LABS: Basophils # 0.1 K/mcL (0.0-0.2); Basophils % 1.1 %; Eosinophils # 0.7 K/mcL (0.0-0.6); Eosinophils % 8.3 %; Hematocrit 35.1 % (35.3-44.9); Hemoglobin 11.1 g/dL (11.5-15.4); Immature Granulocytes % 0.4 % (0-4); Immature Platelets 13.4 % (1.1-6.1); Lymphocytes # 1.6 K/mcL (0.6-4.6); Lymphocytes % 19.1 %; Mean Corpuscular HGB Conc 31.6 g/dL (31.6-35.5); Mean Corpuscular Hemoglobin 32.6 pg (28.0-33.3); Mean Corpuscular Volume 103.2 fL (83.0-100.0); Mean Platelet Volume 13.1 fL (9.4-12.4); Monocytes # 0.6 K/mcL (0.0-1.3); Monocytes % 7.1 %; Neutrophils # 5.4 K/mcL (1.6-8.9); Platelet Count 185 K/mcL (140-400); White Blood Count 8.4 K/mcL (4.3-11.1)
[2022-05-14 09:28] LABS: Calcium 8.9 mg/dL (8.6-10.3); Potassium 4.3 mEq/L (3.5-5.1)
[2022-05-14 09:58] LABS: INR 4.6; Prothrombin Time 50.8 Seconds (9.4-12.1)
[2022-05-14] MEDS ORDERED: Ondansetron 4 MG/2 ML VIAL IVP PRN (10:00)
[2022-05-14] MEDS ORDERED: Naloxone 0.4 MG/ML INJ IVP PRN (10:00)
[2022-05-14 10:43] LABS: Bacteria,Urine Moderate per hpf (None-Few); Bilirubin,Urine Negative (Negative); Blood,Urine Small (Negative); Clarity,Urine Clear (Clear); Color,Urine Yellow (Yellow); Glucose,Urine (UA) Normal (Normal); Hyaline Casts,Urine Few per lpf (None Seen); Ketones,Urine Negative (Negative); Leukocyte Esterase,Urine Small (Negative); Mucus,Urine Few per lpf (None-Few); Nitrite,Urine Positive (Negative); Protein,Urine Trace mg/dL (Neg-Trace); Specific Gravity,Urine 1.025 (1.010-1.025); Squamous Epithelial Cell,Urine Few per hpf (None-Few); Urobilinogen,Urine Normal (Normal)
[2022-05-14] MEDS ORDERED: Acetaminophen 325 MG TABLET PO PRN (11:03)
[2022-05-14] MEDS ORDERED: cefTRIAXone 1,000 MG in 0.9 % Sodium Chloride 10 ML IVP SCH (12:00)
[2022-05-14] MEDS: *HR* HYDROcodone/Acet 5/325 mg TABLET PO PRN ×2 (14:13→20:38)
[2022-05-14 19:07] LABS: Prothrombin Time 21.9 Seconds (9.4-12.1)
[2022-05-14] MEDS: CarBAMazepine XR (12 hr) 100 MG TAB PO SCH (20:38)
[2022-05-14] MEDS ORDERED: *HR* Heparin 5,000 UNIT/ML VIAL IVP PRN ×2 (23:19)
[2022-05-14] MEDS: Heparin 25,000UNIT/250ML 1/2NS 25,000 UNIT/250 ML IV.SOLN IVC SCH (23:46)
[2022-05-15 03:03] LABS: Mean Platelet Volume 13.5 fL (9.4-12.4); Red Cell Distribution Width 14.1 % (11.5-14.5)
[2022-05-15 03:06] LABS: Basophils % 0.4 %; Eosinophils % 0.4 %; Hematocrit 29.4 % (35.3-44.9); Hemoglobin 9.5 g/dL (11.5-15.4); Immature Granulocytes % 0.3 % (0-4); Immature Platelets 12.7 % (1.1-6.1); Lymphocytes # 0.9 K/mcL (0.6-4.6); Lymphocytes % 9.9 %; Mean Corpuscular HGB Conc 32.3 g/dL (31.6-35.5); Mean Corpuscular Hemoglobin 33.1 pg (28.0-33.3); Mean Corpuscular Volume 102.4 fL (83.0-100.0); Monocytes % 10.9 %; Platelet Count 166 K/mcL (140-400); Red Blood Count 2.87 M/mcL (3.82-4.97); Segmented Neutrophils % 78.1 %; White Blood Count 8.9 K/mcL (4.3-11.1)
[2022-05-15 03:12] LABS: INR 1.4; Prothrombin Time 15.4 Seconds (9.4-12.1)
[2022-05-15 03:20] LABS: Calcium 8.8 mg/dL (8.6-10.3); Potassium 4.2 mEq/L (3.5-5.1)
[2022-05-15] MEDS ORDERED: Metoprolol XL (24 HR) Succ 50 MG TAB.ER.24H PO SCH ×2 (07:15→09:00)
[2022-05-15] MEDS ORDERED: CeFAZolin Syr 2,000MG/20 ML 2,000 MG/20 ML SYRINGE IVPB ONE (07:15)
[2022-05-15] MEDS: Metoprolol XL (24 HR) Succ 50 MG TAB.ER.24H PO SCH (07:15)
[2022-05-15] MEDS ORDERED: Ringers Solution, Lactated 1,000 ML IVC SCH (07:15)
[2022-05-15] MEDS: CarBAMazepine XR (12 hr) 100 MG TAB PO SCH ×2 (07:15→21:53)
[2022-05-15] MEDS ORDERED: Ondansetron 4 MG/2 ML VIAL ONE (07:39)
[2022-05-15] MEDS ORDERED: Lidocaine -MPF 2% 5 ML VIAL ONE (07:39)
[2022-05-15] MEDS ORDERED: *HR* Propofol 200 MG/20 ML VIAL IVP ONE (07:40)
[2022-05-15] MEDS ORDERED: *HR* FentaNYL (PF) 100 MCG/2 ML VIAL ONE (07:40)
[2022-05-15] MEDS ORDERED: Famotidine 20 MG/2 ML VIAL IVP ONE (07:44)
[2022-05-15] MEDS ORDERED: Tranexamic Acid 1,000 MG/10 ML VIAL ONE (08:16)
[2022-05-15] MEDS ORDERED: *HR* HYDROMORPHONE 2 MG/ML VIAL ONE (08:36)
[2022-05-15] MEDS ORDERED: Sugammadex Sodium 200 MG/2 ML VIAL IV ONE (09:40)
[2022-05-15] MEDS ORDERED: *HR* Rocuronium Bromide 50 MG/5 ML VIAL ONE (10:00)
[2022-05-15] MEDS ORDERED: Ondansetron 4 MG/2 ML VIAL IVP PRN (10:15)
[2022-05-15] MEDS ORDERED: Morphine Sulfate 2 MG/ML SYRINGE IVP PRN (10:15)
[2022-05-15] MEDS ORDERED: *HR* OxyCODONE Immed Rel 5 MG TABLET PO PRN (10:15)
[2022-05-15] MEDS ORDERED: Ipratropium/Albuterol Neb 3 ML IH ONE (11:20)
[2022-05-15] MEDS ORDERED: Ipratropium/Albuterol Neb 3 ML IH PRN (11:21)
[2022-05-15] MEDS ORDERED: Furosemide 40 MG/4 ML VIAL IVP ONE (11:21)
[2022-05-15] MEDS ORDERED: levoFLOXacin 750 MG/150 ML 750 MG/150 ML BAG IVPB SCH (11:30)
[2022-05-15] MEDS ORDERED: Albumin 25% 25gram/100mL 25 GM/100 ML IV.SOLN IVPB ONE (12:45)
[2022-05-15] MEDS: MetroNIDAZOLE 500 MG/100 ML 500 MG/100 ML BAG IVPB SCH (13:35)
[2022-05-15 16:54] LABS: Hematocrit 24.4 % (35.3-44.9)
[2022-05-15] MEDS ORDERED: 0.9 % Sodium Chloride 1,000 ML IVC SCH (22:30)
[2022-05-16] MEDS: MetroNIDAZOLE 500 MG/100 ML 500 MG/100 ML BAG IVPB SCH ×3 (00:08→17:20)
[2022-05-16 03:27] LABS: Basophils % 0.1 %; Hematocrit 21.1 % (35.3-44.9); Hemoglobin 6.8 g/dL (11.5-15.4); Mean Corpuscular HGB Conc 32.2 g/dL (31.6-35.5)
[2022-05-16 03:29] LABS: Immature Granulocytes % 0.4 % (0-4); Immature Platelets 13.4 % (1.1-6.1); Lymphocytes # 0.8 K/mcL (0.6-4.6); Lymphocytes % 9.1 %; Mean Corpuscular Hemoglobin 33.3 pg (28.0-33.3); Mean Corpuscular Volume 103.4 fL (83.0-100.0); Mean Platelet Volume 13.4 fL (9.4-12.4); Monocytes # 1.3 K/mcL (0.0-1.3); Platelet Count 132 K/mcL (140-400); Red Blood Count 2.04 M/mcL (3.82-4.97); Red Cell Distribution Width 14.4 % (11.5-14.5); Segmented Neutrophils % 76.4 %; White Blood Count 9.1 K/mcL (4.3-11.1)
[2022-05-16 03:44] LABS: Calcium 8.2 mg/dL (8.6-10.3); Magnesium 1.7 mg/dL (1.6-2.6); Potassium 4.7 mEq/L (3.5-5.1)
[2022-05-16] MEDS ORDERED: 0.9 % Sodium Chloride 250 ML ONE (04:12)
[2022-05-16] MEDS: CarBAMazepine XR (12 hr) 100 MG TAB PO SCH ×2 (09:11→19:50)
[2022-05-16] MEDS: Metoprolol XL (24 HR) Succ 50 MG TAB.ER.24H PO SCH (09:12)
[2022-05-16] MEDS: 0.9 % Sodium Chloride 250 ML ONE ×2 (09:25→09:29)
[2022-05-16] MEDS ORDERED: Acetaminophen IV 1,000 MG/100 ML BAG IVPB ONE (09:50)
[2022-05-16 13:23] LABS: Adenovirus Not Detected (Not Detect); Bordetella Pertussis Not Detected (Not Detect); Chlamydophila pneumoniae Not Detected (Not Detect); Coronavirus 229E Not Detected (Not Detect); Coronavirus HKU1 Not Detected (Not Detect); Coronavirus NL63 Not Detected (Not Detect); Coronavirus OC43 Not Detected (Not Detect); Human Metapneumovirus Not Detected (Not Detect); Human Rhinovirus/Enterovirus Not Detected (Not Detect); Influenza A Subtype 2009 H1 Not Detected (Not Detect); Influenza B Not Detected (Not Detect); Mycoplasma pneumoniae Not Detected (Not Detect); Parainfluenza Virus 1 Not Detected (Not Detect); Parainfluenza Virus 2 Not Detected (Not Detect); Parainfluenza Virus 3 Not Detected (Not Detect); Parainfluenza Virus 4 Not Detected (Not Detect); Respiratory Syncytial Virus Not Detected (Not Detect); SARS-CoV-2 Not Detected (Not Detect)
[2022-05-16 16:11] LABS: Basophils % 0.2 %; Eosinophils % 0.3 %; Hematocrit 29.4 % (35.3-44.9); Hemoglobin 9.8 g/dL (11.5-15.4); Immature Granulocytes % 0.7 % (0-4); Lymphocytes # 1.1 K/mcL (0.6-4.6); Lymphocytes % 12.1 %; Mean Corpuscular HGB Conc 33.3 g/dL (31.6-35.5); Mean Corpuscular Hemoglobin 31.4 pg (28.0-33.3); Mean Corpuscular Volume 94.2 fL (83.0-100.0); Monocytes # 1.5 K/mcL (0.0-1.3); Monocytes % 17.3 %; Platelet Count 109 K/mcL (140-400); Red Blood Count 3.12 M/mcL (3.82-4.97); Red Cell Distribution Width 18.1 % (11.5-14.5); Segmented Neutrophils % 69.4 %; White Blood Count 8.7 K/mcL (4.3-11.1)
[2022-05-16] MEDS: Acetaminophen 325 MG TABLET PO PRN (17:20)
[2022-05-17] MEDS: MetroNIDAZOLE 500 MG/100 ML 500 MG/100 ML BAG IVPB SCH ×3 (00:02→16:29)
[2022-05-17 06:35] LABS: Basophils % 0.3 %; Eosinophils % 0.5 %; Hemoglobin 9.8 g/dL (11.5-15.4); Immature Granulocytes % 0.5 % (0-4); Lymphocytes # 0.7 K/mcL (0.6-4.6); Mean Corpuscular HGB Conc 32.7 g/dL (31.6-35.5); Mean Corpuscular Hemoglobin 30.9 pg (28.0-33.3); Mean Corpuscular Volume 94.6 fL (83.0-100.0); Mean Platelet Volume 13.3 fL (9.4-12.4); Monocytes % 12.3 %; Red Blood Count 3.17 M/mcL (3.82-4.97); Red Cell Distribution Width 18.3 % (11.5-14.5); Segmented Neutrophils % 77.4 %; White Blood Count 7.8 K/mcL (4.3-11.1)
[2022-05-17 07:09] LABS: BUN/Creatinine Ratio 17 (6-26); Blood Urea Nitrogen 18 mg/dL (8-23); Calcium 8.1 mg/dL (8.6-10.3); Carbon Dioxide 23 mEq/L (23-29); Chloride 106 mEq/L (98-107); Glucose 135 mg/dL (70-105); Magnesium 1.8 mg/dL (1.6-2.6); Osmolality,Calculated 288 (280-300); Sodium 137 mEq/L (136-145); eGFR For African Americans > 60 (> 60); eGFR For Non-African Americans 50 (> 60)
[2022-05-17 07:20] LABS: Platelet Count 88 K/mcL (140-400)
[2022-05-17 07:22] LABS: Anisocytosis 1+ (Not Present); Platelet Estimate Decreased (Normal); Polychromasia 1+ (Not Present)
[2022-05-17] MEDS: Metoprolol XL (24 HR) Succ 50 MG TAB.ER.24H PO SCH (08:25)
[2022-05-17] MEDS: CarBAMazepine XR (12 hr) 100 MG TAB PO SCH ×2 (08:25→19:59)
[2022-05-17] MEDS ORDERED: levoFLOXacin 750 MG/150 ML 750 MG/150 ML BAG IVPB SCH (12:00)
[2022-05-17] MEDS: Acetaminophen 325 MG TABLET PO PRN ×2 (14:07→20:18)
[2022-05-17] MEDS: tiZANidine 4 MG TABLET PO PRN (17:05)
[2022-05-17] MEDS ORDERED: 0.9 % Sodium Chloride 500 ML IVC ONE (20:03)
[2022-05-18] MEDS: MetroNIDAZOLE 500 MG/100 ML 500 MG/100 ML BAG IVPB SCH ×2 (00:01→07:45)
[2022-05-18] MEDS: tiZANidine 4 MG TABLET PO PRN ×2 (01:02→21:14)
[2022-05-18 02:16] LABS: Basophils % 0.2 %; Hematocrit 24.8 % (35.3-44.9); Lymphocytes % 8.9 %; Mean Corpuscular Volume 96.9 fL (83.0-100.0); Red Blood Count 2.56 M/mcL (3.82-4.97)
[2022-05-18 02:19] LABS: Eosinophils # 0.1 K/mcL (0.0-0.6); Eosinophils % 1.7 %; Hemoglobin 8.1 g/dL (11.5-15.4); Immature Granulocytes % 0.8 % (0-4); Immature Platelets 13.7 % (1.1-6.1); Lymphocytes # 0.8 K/mcL (0.6-4.6); Mean Corpuscular HGB Conc 32.7 g/dL (31.6-35.5); Mean Corpuscular Hemoglobin 31.6 pg (28.0-33.3); Monocytes % 11.5 %; Neutrophils # 6.5 K/mcL (1.6-8.9); Red Cell Distribution Width 17.9 % (11.5-14.5); Segmented Neutrophils % 76.9 %; White Blood Count 8.4 K/mcL (4.3-11.1)
[2022-05-18 02:23] LABS: Platelet Count 93 K/mcL (140-400)
[2022-05-18 02:39] LABS: Calcium 7.7 mg/dL (8.6-10.3); Magnesium 1.7 mg/dL (1.6-2.6); Potassium 3.9 mEq/L (3.5-5.1)
[2022-05-18] MEDS: CarBAMazepine XR (12 hr) 100 MG TAB PO SCH ×2 (07:45→21:11)
[2022-05-18] MEDS: Metoprolol XL (24 HR) Succ 50 MG TAB.ER.24H PO SCH (07:53)
[2022-05-18] MEDS: Acetaminophen 325 MG TABLET PO PRN (15:00)
[2022-05-18] MEDS: metroNIDAZOLE 500 MG TABLET PO SCH ×2 (15:00→21:11)
[2022-05-18] MEDS ORDERED: 0.9 % Sodium Chloride 500 ML IVC PRN (17:16)
[2022-05-18 17:32] LABS: Hematocrit 28.5 % (35.3-44.9); Hemoglobin 9.1 g/dL (11.5-15.4)
[2022-05-18] MEDS: Heparin 25,000UNIT/250ML 1/2NS 25,000 UNIT/250 ML IV.SOLN IVC SCH (17:45)
[2022-05-18] MEDS: *HR* HYDROcodone/Acet 5/325 mg TABLET PO PRN (21:13)
[2022-05-19 01:17] LABS: Basophils % 0.4 %; Eosinophils # 0.3 K/mcL (0.0-0.6); Eosinophils % 3.3 %; Hematocrit 27.6 % (35.3-44.9); Hemoglobin 8.8 g/dL (11.5-15.4); Immature Granulocytes % 0.6 % (0-4); Immature Platelets 10.9 % (1.1-6.1); Lymphocytes # 1.1 K/mcL (0.6-4.6); Lymphocytes % 13.8 %; Mean Corpuscular HGB Conc 31.9 g/dL (31.6-35.5); Mean Corpuscular Hemoglobin 31.5 pg (28.0-33.3); Mean Corpuscular Volume 98.9 fL (83.0-100.0); Mean Platelet Volume 13.6 fL (9.4-12.4); Monocytes # 0.9 K/mcL (0.0-1.3); Monocytes % 11.5 %; Neutrophils # 5.5 K/mcL (1.6-8.9); Platelet Count 111 K/mcL (140-400); Red Blood Count 2.79 M/mcL (3.82-4.97); Red Cell Distribution Width 17.8 % (11.5-14.5); Segmented Neutrophils % 70.4 %; White Blood Count 7.9 K/mcL (4.3-11.1)
[2022-05-19 01:22] LABS: Heparin anti-factor XA UFH 0.99 IU/mL (0.30-0.70)
[2022-05-19 01:34] LABS: BUN/Creatinine Ratio 16 (6-26); Blood Urea Nitrogen 15 mg/dL (8-23); Calcium 7.8 mg/dL (8.6-10.3); Carbon Dioxide 23 mEq/L (23-29); Chloride 106 mEq/L (98-107); Glucose 134 mg/dL (70-105); Magnesium 1.8 mg/dL (1.6-2.6); Osmolality,Calculated 281 (280-300); Potassium 3.5 mEq/L (3.5-5.1); Sodium 134 mEq/L (136-145); eGFR For African Americans > 60 (> 60); eGFR For Non-African Americans 59 (> 60)
[2022-05-19] MEDS: CarBAMazepine XR (12 hr) 100 MG TAB PO SCH ×2 (07:50→20:04)
[2022-05-19] MEDS: metroNIDAZOLE 500 MG TABLET PO SCH ×3 (07:50→20:03)
[2022-05-19] MEDS: Metoprolol XL (24 HR) Succ 50 MG TAB.ER.24H PO SCH (07:50)
[2022-05-19 08:02] LABS: INR 1.3
[2022-05-19] MEDS ORDERED: levoFLOXacin 750 MG TABLET PO SCH (12:00)
[2022-05-19] MEDS: *HR* HYDROcodone/Acet 5/325 mg TABLET PO PRN (16:14)
[2022-05-19] MEDS ORDERED: Warfarin perPT PO PRN (18:00)
[2022-05-19] MEDS ORDERED: *HR* Warfarin 4 MG TABLET PO ONE (18:00)
[2022-05-19] MEDS: Heparin 25,000UNIT/250ML 1/2NS 25,000 UNIT/250 ML IV.SOLN IVC SCH (22:17)
[2022-05-20 01:09] LABS: Immature Granulocytes % 0.6 % (0-4); Lymphocytes % 12.5 %
[2022-05-20] MEDS: *HR* HYDROcodone/Acet 5/325 mg TABLET PO PRN (01:10)
[2022-05-20 01:11] LABS: Basophils % 0.5 %; Eosinophils # 0.4 K/mcL (0.0-0.6); Eosinophils % 5.1 %; Hematocrit 28.6 % (35.3-44.9); Hemoglobin 9.1 g/dL (11.5-15.4); Immature Platelets 10.7 % (1.1-6.1); Mean Corpuscular HGB Conc 31.8 g/dL (31.6-35.5); Mean Corpuscular Hemoglobin 31.2 pg (28.0-33.3); Mean Corpuscular Volume 97.9 fL (83.0-100.0); Monocytes # 0.9 K/mcL (0.0-1.3); Monocytes % 10.9 %; Neutrophils # 5.9 K/mcL (1.6-8.9); Platelet Count 126 K/mcL (140-400); Red Blood Count 2.92 M/mcL (3.82-4.97); Red Cell Distribution Width 17.5 % (11.5-14.5); Segmented Neutrophils % 70.4 %; White Blood Count 8.4 K/mcL (4.3-11.1)
[2022-05-20 01:17] LABS: INR 1.2; Prothrombin Time 13.8 Seconds (9.4-12.1)
[2022-05-20 01:31] LABS: BUN/Creatinine Ratio 16 (6-26); Blood Urea Nitrogen 14 mg/dL (8-23); Calcium 8.1 mg/dL (8.6-10.3); Carbon Dioxide 23 mEq/L (23-29); Chloride 105 mEq/L (98-107); Glucose 121 mg/dL (70-105); Osmolality,Calculated 280 (280-300); Potassium 3.7 mEq/L (3.5-5.1); Sodium 134 mEq/L (136-145); eGFR For African Americans > 60 (> 60); eGFR For Non-African Americans > 60 (> 60)
[2022-05-20 01:49] LABS: Lymphocytes # 1.1 K/mcL (0.6-4.6)
[2022-05-20] MEDS: CarBAMazepine XR (12 hr) 100 MG TAB PO SCH (07:41)
[2022-05-20] MEDS: metroNIDAZOLE 500 MG TABLET PO SCH (07:41)
[2022-05-20] MEDS: Metoprolol XL (24 HR) Succ 50 MG TAB.ER.24H PO SCH (07:41)
[2022-05-20] MEDS ORDERED: Moderna Covid-19 Vaccine 100MCG/0.5mL IM ONE (11:08)
[2022-05-20 11:23] VITALS: BP 111/97; PULSE 106; TEMP 98.3; O2SAT 96
[2022-05-20] MEDS ORDERED: levoFLOXacin 750 MG TABLET PO SCH (12:00)
[2022-05-20] MEDS ORDERED: *HR* Warfarin 3 MG TABLET PO ONE (18:00)
== END 2022-05-20 15:05 | DRG 480 ==
LOC: EMEROOARM 08:26 → 4WAOSI 10:10 → SUATTDRO 10:10 → 4WAOSI 10:36
PROVIDERS: ADMIT Family Medicine; ATTEND Pharmacist